=== PATIENT | female | born 2000 | race Caucasian/White ===

== ENCOUNTER 2022-08-31 11:25 | Outpatient (OUT) | payer BC, SELFPAY ==
--- NOTE | 2022-08-31 11:29 | US_ITS ---
The [address] [address] Patient Name: JAME CERDA MRN: [id number] date: 2000 Sex: F Assigned Patient Location: [place] Current Patient Location: US Accession/Order Number: [id number] Exam Date: 08/31/2022 11:30 Report Date: 08/31/2022 14:02 At the request of: JAZZY RAMOS Procedure: US right upper quadrant EXAMINATION: US right upper quadrant HISTORY: RUQ pain (R10.11), Positive Ledesma's COMPARISON: No relevant comparison available. TECHNIQUE: Transabdominal evaluation of the right upper quadrant. FINDINGS: LIVER: Fatty infiltration. No mass or abnormal contour. Color Doppler demonstrates patent hepatic veins. PORTAL VEIN: Duplex Doppler demonstrates normal hepatopetal flow pattern with flow velocity averaging 36 cm/s. GALLBLADDER: No visible gallstones, wall thickening, or pericholecystic free fluid. Negative sonographic Ledesma's sign. BILIARY: No abnormal dilation or stones. Common bile duct diameter is within normal limits. PANCREASE: No visible mass, abnormal atrophy, or duct dilation. KIDNEY: No hydronephrosis. No visible mass or stones. Size: 8.7 x 4.7 x 3.9 cm IMPRESSION: 1. No acute or suspicious findings to account for patient's symptoms. Electronically authenticated by: EBONY PONCE Date: 08/31/2022 14:02
== END 2022-08-31 11:26 ==
PROVIDERS: PCP Family Medicine; Visit Provider Physician Assistant
DX: R10.11 Right upper quadrant pain (principal)
CPT/HCPCS: 76705